=== PATIENT | female | born 1975 | race Caucasian/White ===

== ENCOUNTER 2019-08-22 09:56 | Day surgery (SDC) | payer BC, SELFPAY ==
[2019-08-18 12:38] VITALS: BMI 30.9
[2019-08-22] VITALS (8 sets, daily range): BP systolic 96–148; BP diastolic 56–93; PULSE 53–81; RESP 18; TEMP 36.4–36.7; O2SAT 94–100
[2019-08-22 10:42] LABS: Urine Pregnancy, HCG Qual. Negative (Negative)
--- NOTE | 2019-08-22 11:42 | [facility].PROC ---
[facility] Procedure Note Procedure Note:: Colonoscopy Procedure Report: Colonoscopy with cautery snare polypectomy and Endo Clip placement Endoscopist: Billy Galindo II, MD Referring physician: Will Davis MD Date of Procedure: August 22, 2019 Equipment: Olympus 180 variable stiffness pediatric colonoscope Sedation: MAC sedation Indication: Mrs. Phelps is a 43-year-old female who has had pain between her shoulder blades on the right side. She has had some periumbilical abdominal discomfort, bloating, belching, nausea and intermittent vomiting. She has some early satiety. She had cholecystectomy for gallbladder sludge 4 years ago. She did have some retained/amputated gallbladder and a generous cystic duct. A CAT scan showed some sludge and congestion within the retained cystic duct. She did have an ERCP with me in September 2018 with biliary sphincterotomy. She did clinically improve and has done very well. She states that her right-sided pain radiating between the shoulder blades had improved. The patient continues to have irregular bowel function with constipation that alternates with diarrhea. She has incomplete defecation. She does take MiraLAX plus Citrucel in the morning. She did not take the Motegrity because of high cost. She is sticking with her diet. She has had some increased stress with COVID?19 but also has had increased sitting for longer periods of time on the computer. She does feel that some of her bloating may be related to her sleep apnea mask and pushing air into her digestive tract. Her father had numerous adenomatous colon polyps. Her CAT scan in July 2018 showed obstipation/retained stool. Her recent sucrose breath testing was normal. Her recent lab work did show iron deficiency with iron saturation 15% and ferritin level 53. Her hemoglobin and hematocrit were normal (13.5 and 38.9). Her ALT level was minimally elevated at 32 but the remainder of her liver and pancreatic chemistries were normal. This is her first colonoscopy performed for diagnostic purposes because of her right-sided abdominal pain and iron deficiency. Procedure: Prior to the procedure, a history and physical exam was performed, and patient's medications and allergies were reviewed. The risks, benefits and alternatives of the sedation and procedure were discussed with the patient. All questions were answered and informed consent was obtained. The patient was brought to the procedure room. Patient identification and proposed procedure were verified by the physician and the nurse. The patient was placed in a left lateral decubitus position and the scope was passed under direct vision. Throughout the procedure, the patient's blood pressure, pulse, and oxygen saturations were monitored continuously. The colonoscopy was accomplished without difficulty. The patient tolerated the procedure well. Findings: On digital rectal examination there was normal rectal tone. There were no external hemorrhoids. The colonoscope was introduced through the anal canal to the rectum and advanced to the cecum. The ileocecal valve and appendiceal orifice were identified. The scope was advanced a short distance into the ileum which appeared grossly normal. The scope was then withdrawn into the colon. The cecum, ascending, transverse and descending colon were normal with normal appearing mucosa. There was some angulation at the hepatic flexure suggestive of hepatic flexure syndrome. Within the sigmoid colon was a pedunculated polyp that was 8 mm with by 15 mm length on a short stalk. This was removed via snare cautery. A single Endo Clip was placed over the polypectomy site for closure. Upon retroflexion within the rectum there were grade 1 internal hemorrhoids.The preparation was excellent throughout with [place] Preparation Score of 9. The cecal time was 13 minutes. Impression: 1. 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 Grade 1 int
== END 2019-08-22 12:55 | disposition home or self-care (01) ==
PROVIDERS: PCP General Practice; Visit Provider Internal Medicine Gastroenterology
PROC: 0DJD8ZZ Inspection of Lower Intestinal Tract, Via Natural or Artificial Opening Endoscopic (ICD-10-PCS; CPT 45378; principal; 2019-08-22 11:00)
DX: R10.11 Right upper quadrant pain (principal); D50.9 Iron deficiency anemia, unspecified; D12.5 Benign neoplasm of sigmoid colon; K64.0 First degree hemorrhoids; K59.8 Other specified functional intestinal disorders
CPT/HCPCS: 45385; 81025